=== PATIENT | male | born 1965 | race Caucasian/White ===

== ENCOUNTER 2019-08-21 09:03 | Emergency (ER) | payer OTHER ==
[~2019-08-21] VITALS: Ht 182.9 cm; Wt 136.1 kg
[2019-08-21 09:44] LABS: ABSOLUTE NEUTROPHILS 3.2 thou/uL (1.4-8.2); BASOPHILS 0.8 % (0.0-2.0); HEMATOCRIT 45.8 % (42.0-52.0); HEMOGLOBIN 15.9 gm/dL (14.0-18.0); LYMPHOCYTES 42.3 % (24.0-44.0); MCH 30.4 pg (26.0-34.0); MCHC 34.7 g/dL (28.0-37.0); MCV 87.7 fL (80.0-100.0); MONOCYTES 4.8 % (1.0-8.0); PLATELET COUNT 189 thou/uL (150-400); POLYS 49.1 % (36.0-66.0); RBC 5.22 mil/uL (4.50-6.00); RDW 13.4 % (10.5-14.5); WBC 6.6 thou/uL (4.0-11.0)
[2019-08-21 09:54] LABS: ANION GAP 8 mmol/L (7-16); BUN 14 mg/dL (7-18); CALCIUM 9.1 mg/dL (8.5-10.1); CHLORIDE 102 mmol/L (98-107); CO2 28 mmol/L (21-32); CREATININE 0.9 mg/dL (0.7-1.3); GLUCOSE 143 mg/dL (74-106); POTASSIUM 3.8 mmol/L (3.5-5.1); SODIUM 138 mmol/L (136-145)
[2019-08-21 09:59] LABS: ALBUMIN 3.9 g/dL (3.4-5.0); DIRECT BILIRUBIN < 0.1 mg/dL (<0.1-0.3); SGOT 47 U/L (15-37); SGPT 35 U/L (30-65); TOTAL BILIRUBIN 1.1 mg/dL (<0.1-1.0); TOTAL PROTEIN 7.7 g/dL (6.4-8.2)
[2019-08-21 10:02] LABS: LIPASE 139 U/L (73-393); TROPONIN-I <0.06 ng/mL (<0.06)
[2019-08-21] MEDS ORDERED: PROTONIX 20 MG20 MG PO (10:39)
[2019-08-21] MEDS ORDERED: METFORMIN HCL500 M3 PO (10:44)
[2019-08-21] MEDS ORDERED: ASA81BEC PO (11:23)
[2019-08-21 12:10] VITALS: BP 109/62
--- NOTE | 2019-08-21 17:42 | EKG ---
[address] [address] ELECTROCARDIOGRAM REPORT Name: SCOTT VILLANUEVA [facility] [id number] Admission: 08/21/19 Attend Phys: Discharge: 08/21/19 Date of : 67 Report #: [id number] THIS REPORT FOR: //name// 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
== END 2019-08-21 12:05 | disposition home or self-care (01) ==
LOC: ER 09:03
PROVIDERS: Emergency Medicine
DX: K21.9 Gastro-esophageal reflux disease without esophagitis (principal); E11.9 Type 2 diabetes mellitus without complications